=== PATIENT | male | born 1950 | race Caucasian/White ===

== ENCOUNTER → 2023-07-16 13:25 | Outpatient (CLI) | payer OTHER, SELFPAY ==
--- NOTE | 2023-07-16 | DI.MRI.S_ITS ---
PROCEDURE: MR LUMBAR SPINE WO CON INDICATIONS: Radiculopathy, lumbar region TECHNIQUE: Noncontrast sagittal T1 spin echo and T2 fast echo, sagittal STIR, and T2 fast spin echo through the lumbar spine. In cases with scoliosis, additional coronal T2 fast spin echo may be performed. COMPARISON: None. FINDINGS: Image quality: Excellent. Alignment and Curvature: There is normal bony alignment. Bone Marrow: Marrow is of normal overall signal. No acute vertebral body compression fractures. Spinal Cord: Conus medullaris terminates at the L1 level. Visualized cord demonstrates normal signal and size. Paraspinous Soft Tissues: No paravertebral masses. T12-L1: Normal appearance. L1-L2: Mild facet arthropathy present. No central foraminal stenosis L2-L3: Disc height is preserved. No central or foraminal stenosis. L3-L4: Disc space narrowing mild circumferential disc bulge results in mild central stenosis. Moderate bilateral foraminal stenosis L4-L5: Disc space narrowing and hypertrophic facet joints. Moderate left foraminal stenosis. No central or right foraminal stenosis. L5-S1: Disc space narrowing and disc bulge present with hypertrophic facet joints. No central or foraminal stenosis IMPRESSION: Degenerative disc disease and arthropathy associated with moderate foraminal stenosis L3-4 and L4-5. No significant central stenosis throughout the exam. Approved by: Thaddeus Thornton M.D. on 07/18/2023 at 12:24
== END ==
PROVIDERS: PCP Internal Medicine; Referring Provider Physical Medicine & Rehabilitation Pain Medicine; Visit Provider Physical Medicine & Rehabilitation Pain Medicine
DX: M51.16 Intervertebral disc disorders with radiculopathy, lumbar region (principal); M47.26 Other spondylosis with radiculopathy, lumbar region; M48.061 Spinal stenosis, lumbar region without neurogenic claudication
CPT/HCPCS: 72148